=== PATIENT | male | born 1975 | race Hispanic/Latino ===

== ENCOUNTER 2021-04-01 14:52 | Emergency (ER) | payer OTHER ==
[~2021-04-01] VITALS: Ht 170.2 cm; Wt 83.0 kg
[2021-04-01] MEDS ORDERED: CASIRIVIMAB/IMDEVIMAB 10 ML in SODIUM CHLORIDE 0.9% 100 ML IV ONE (15:45)
== END 2021-04-01 19:29 | disposition home or self-care (01) ==
LOC: ER 15:46
DX: R50.9 Fever, unspecified (principal); R05 Cough; U07.1 COVID-19; E11.8 Type 2 diabetes mellitus with unspecified complications
CPT/HCPCS: 99283